=== PATIENT | female | born 1935 | race Hispanic/Latino ===

== ENCOUNTER 2019-11-02 16:29 | Emergency (ER) | payer MEDICARE ==
[2019-11-02] MEDS ORDERED: LIDOCAINE (4%) 40 MG/ML TOPICAL SOLN 50 ML BOTTLE TP ONE (17:31)
[2019-11-02] MEDS ORDERED: METOCLOPRAMIDE 10 MG/2 ML INJ IV ONE (17:31)
--- NOTE | 2019-11-02 17:33 | Emergency Department Report ---
<CRYSTAL PELAYO - Last Filed: 11/02/19 23:52> ED General Adult HPI - General Chief complaint: Headache Stated complaint: DIZZINESS Time Seen by Provider: 11/02/19 17:13 Source: patient, EMS (EMS documentation not available at the time of chart dictation), RN notes reviewed Mode of arrival: Stretcher Limitations: No Limitations - History of Present Illness Initial comments: The patient is an 84-year-old female. Patient is not known to this provider previously. She currently does not have a primary care doctor. The patient presents to the ER with a complaint of nontraumatic frontal headache. It started earlier on today at about 11:00 AM. She describes the headache as a "spell." Associated with the headache is nontraumatic bilateral paracervical pain that moves to be a simple region. She described transient binocular blurry vision. Apparently, the patient is blind. The patient denies midline neck pain, chest pain, abdominal pain, shortness of breath. She states that she has chronic paraspinal trapezius pain for months and years. She reports that she does a lot of heavy lifting at home. The patient denies extremity weakness and her numbness. She denies bladder or bowel retention and or incontinence. She denies urinary symptoms. She presented to the ER "to get a picture taken so I can know what was going on." -: Gradual Location: head, neck Severity scale (0 -10): 6 Quality: aching Consistency: intermittent Improves with: rest Worsens with: movement - Related Data Previous Rx's Medication Instructions Recorded Last Taken Type Ibuprofen/Famotidine [Duexis 1 each PO TID PRN #45 tablet 06/25/16 Unknown Rx 800-26.6 mg Tablet] Allergies Allergy/AdvReac Type Severity Reaction Status Date / Time No Known Allergies Allergy Unverified 10/05/14 13:15 ED Review of Systems Constitutional: denies: fever Eyes: vision change ENT: denies: congestion Respiratory: denies: wheezing Cardiovascular: denies: syncope Gastrointestinal: denies: vomiting Genitourinary: denies: dysuria Musculoskeletal: arthralgia, myalgia Neurological: headache. denies: weakness, numbness, paresthesias, confusion Hematological/Lymphatic: denies: easy bleeding ED Past Medical Hx - Past Medical History Previous Medical History?: Yes Hx Hypertension: Yes Additional medical history: legally blind. thyroid - Surgical History Past Surgical History?: Yes Additional Surgical History: thyroid - Social History Smoking Status: Never Smoker Substance Use Type: None - Medications Home Medications: Home Medications Medication Instructions Recorded Confirmed Last Taken Type Ibuprofen/Famotidine [Duexis 1 each PO TID PRN #45 tablet 06/25/16 Unknown Rx 800-26.6 mg Tablet] ED Physical Exam - General Limitations: No Limitations General appearance: alert, in no apparent distress - Head Head exam: Present: atraumatic, normocephalic - Eye Eye exam: Present: normal appearance, PERRL, EOMI, other (visual acuity intact t o finger counting and color perception at a close distance). Absent: nystagmus - ENT ENT exam: Present: normal exam, normal orophraynx, mucous membranes moist, normal external ear exam - Neck Neck exam: Present: normal inspection, full ROM. Absent: tenderness, meningismus - Respiratory Respiratory exam: Present: normal lung sounds bilaterally. Absent: respiratory distress - Cardiovascular Cardiovascular Exam: Present: regular rate, normal rhythm, normal heart sounds. Absent: bradycardia, tachycardia, irregular rhythm, systolic murmur, diastolic murmur, rubs, gallop - GI/Abdominal GI/Abdominal exam: Present: soft. Absent: distended, tenderness, guarding, rebound, rigid, pulsatile mass - Extremities Exam Extremities exam: Present: normal inspection, full ROM, other (2+ pulses noted in the bilateral upper and lower extremities. There is no long bony tenderness. The muscular compartments are soft. The pelvis is stable.). Absent: pedal edema, calf tenderness - Back Exam Back exam: Present: normal inspection, full ROM. Absent: tenderness, CVA tenderness (R), CVA tenderness (L), paraspinal tenderness, vertebral tenderness - Neurological Exam Neurological exam: Present: alert, oriented X3, other (there is no facial droop. The tongue is midline. The extraocular movements are intact bilaterally. ). Absent: motor sensory deficit - Psychiatric Psychiatric exam: Present: anxious - Skin Skin exam: Present: warm, dry, intact, normal color. Absent: rash ED Course - Reevaluation(s) Reevaluation #1: 11/02/19 18:54 Differential diagnosis, including not limited to: Frontal sinusitis, TIA, stroke, carotid dissection, posterior circulation dissection, thrombosis, migraine headache, tension headache, cluster headache, temporal arteritis Assessment and plan: 84-year-old female describing frontal headache, and acute on chronic bilateral paracervical neck pain. She also describes nonspecific binocular visual disturbance. The patient is alert and oriented, clinically sober, and free from distracting injury. The patient exhibits decision-making capacity at this time. We recommended screening laboratory studies, CT scan of the brain, and CT angiogram of the head and neck. We also recommended admission to the hospital after initial diagnostics, assuming they were unremarkable and nondiagnostic. The patient is refusing most of this. She is amenable to EKG, and noncontrast CT scan of the brain. Risks of an incomplete workup, including , disability, paralysis, loss of quality of life were discussed with the patient, who articulated understanding in her own words. The patient is free from distracting injury at this time, and exhibits decision-making capacity. This entire conversation was witnessed by nurse Silvia Aguirre Reevaluation #2: 11/02/19 22:34 Extensive discussion had with the patient, and son, and [id number]. Patient gave verbal consent to discuss her medical information. Discussed CAT scan findings, and laboratory studies. The patient's primary care doctor is Dr. Dayan Rodgers Patient is currently taking Synthroid. After much intense discussion between the patient and aforementioned family members, patient is now amenable to CT angiogram. Nursing team to attempt IV. Please note that the patient initial refusal for CT scan with contrast, initial refusal for labs, and initial refusal for IV and angiogram have led to a rather prolonged stay for her in the emergency room. The patient continues to exhibit decision making capacity at this time. 11/02/19 22:35 Reevaluation #3: 11/02/19 23:[address] Dayan Paez to follow up cta head neck reiterated plan to family they are trying to convince patient of plan she continues to exhibit decision making capacity ED Medical Decision Making - Lab Data Result diagrams: 11/02/19 19:13 11/02/19 19:13 Vital Signs 11/02/19 11/02/19 16:50 18:32 Temperature 97.8 F Pulse Rate 82 Respiratory 18 20 Rate Blood Pressure 147/55 [Right] O2 Sat by Pulse 98 Oximetry Vital Signs 11/02/19 11/02/19 16:50 18:32 Temperature 97.8 F Pulse Rate 82 Respiratory 18 20 Rate Blood Pressure 147/55 [Right] O2 Sat by Pulse 98 Oximetry Lab Results 11/02/19 11/02/19 11/02/19 Range/Units 19:13 19:13 19:13 WBC 8.0 (4.5-11.0) K/mm3 RBC 4.95 (3.65-5.03) M/mm3 Hgb 13.8 (10.1-14.3) gm/dl Hct 40.9 (30.3-42.9) % MCV 83 (79-97) fl MCH 28 (28-32) pg MCHC 34 (30-34) % RDW 14.8 (13.2-15.2) % Plt Count 239 (140-440) K/mm3 Lymph % (Auto) 21.2 (13.4-35.0) % [place] % (Auto) 7.6 H (0.0-7.3) % Eos % (Auto) 4.5 H (0.0-4.3) % Baso % (Auto) 0.7 (0.0-1.8) % Lymph # 1.7 (1.2-5.4) K/mm3 [place] # 0.6 (0.0-0.8) K/mm3 Eos # 0.4 (0.0-0.4) K/mm3 Baso # 0.1 (0.0-0.1) K/mm3 Seg Neutrophils % 66.0 (40.0-70.0) % Seg Neutrophils # 5.3 (1.8-7.7) K/mm3 ESR 23 (0-20) mm/Hr PT 12.6 (12.2-14.9) Sec. INR 0.95 (0.87-1.13) APTT 32.0 (24.2-36.6) Sec. Thrombin Time 16.2 (15.1-19.6) Sec. Sodium 137 (137-145) mmol/L Potassium 4.4 (3.6-5.0) mmol/L Chloride 98.6 (98-107) mmol/L Carbon Dioxide 21 L (22-30) mmol/L Anion Gap 22 mmol/L BUN 10 (7-17) mg/dL Creatinine 0.5 L (0.7-1.2) mg/dL Estimated GFR > 60 ml/min BUN/Creatinine Ratio 20 % Glucose 117 H (65-100) mg/dL Calcium 10.2 (8.4-10.2) mg/dL Magnesium (1.7-2.3) mg/dL Total Bilirubin 0.30 (0.1-1.2) mg/dL AST 25 (5-40) units/L ALT 25 (7-56) units/L Alkaline Phosphatase 85 (35-129) units/L Total Creatine Kinase (30-135) units/L Troponin T < 0.010 (0.00-0.029) ng/mL Total Protein 7.4 (6.3-8.2) g/dL Albumin 4.6 (3.9-5) g/dL Albumin/Globulin Ratio 1.6 % TSH (0.270-4.200) mlU/mL Free T4 (0.76-1.46) ng/dL 11/02/19 11/02/19 11/02/19 Range/Units 19:13 19:13 19:13 WBC (4.5-11.0) K/mm3 RBC (3.65-5.03) M/mm3 Hgb (10.1-14.3) gm/dl Hct (30.3-42.9) % MCV (79-97) fl MCH (28-32) pg MCHC (30-34) % RDW (13.2-15.2) % Plt Count (140-440) K/mm3 Lymph % (Auto) (13.4-35.0) % [place] % (Auto) (0.0-7.3) % Eos % (Auto) (0.0-4.3) % Baso % (Auto) (0.0-1.8) % Lymph # (1.2-5.4) K/mm3 [place] # (0.0-0.8) K/mm3 Eos # (0.0-0.4) K/mm3 Baso # (0.0-0.1) K/mm3 Seg Neutrophils % (40.0-70.0) % Seg Neutrophils # (1.8-7.7) K/mm3 ESR (0-20) mm/Hr PT (12.2-14.9) Sec. INR (0.87-1.13) APTT (24.2-36.6) Sec. Thrombin Time (15.1-19.6) Sec. Sodium (137-145) mmol/L Potassium (3.6-5.0) mmol/L Chloride (98-107) mmol/L Carbon Dioxide (22-30) mmol/L Anion Gap mmol/L BUN (7-17) mg/dL Creatinine (0.7-1.2) mg/dL Estimated GFR ml/min BUN/Creatinine Ratio % Glucose (65-100) mg/dL Calcium (8.4-10.2) mg/dL Magnesium 2.30 (1.7-2.3) mg/dL Total Bilirubin (0.1-1.2) mg/dL AST (5-40) units/L ALT (7-56) units/L Alkaline Phosphatase (35-129) units/L Total Creatine Kinase 91 (30-135) units/L Troponin T (0.00-0.029) ng/mL Total Protein (6.3-8.2) g/dL Albumin (3.9-5) g/dL Albumin/Globulin Ratio % TSH 0.009 L (0.270-4.200) mlU/mL Free T4 2.67 H (0.76-1.46) ng/dL - EKG Data -: EKG Interpreted by Ak EKG shows normal: sinus rhythm Rate: normal - EKG Data When compared to previous EKG there are: previous EKG unavailable 11/02/19 18:53 There is no prior EKG available for comparison. The EKG shows a sinus rhythm, 76 bpm, left axis deviation, poor R wave progression, QTC is 439 ms, the EKG is abnormal, the EKG is not consistent with ST elevation myocardial infarction. - Radiology Data Radiology results: pending, report reviewed, image reviewed Noncontrast CT scan of the brain is negative for acute disease ED Disposition Clinical Impression: Dizziness Disposition: DC-01 TO HOME OR SELFCARE Condition: Stable Instructions: Lightheadedness (ED), Dizziness (ED) Referrals: PRIMARY CARE, [Referring] - 3-5 Days <CRISTY ELLISON - Last Filed: 11/03/19 04:19> ED Review of Systems ROS: Stated complaint: DIZZINESS Other details as noted in HPI ED Course Vital Signs 11/02/19 11/02/19 11/02/19 16:50 18:32 19:20 Temperature 97.8 F Pulse Rate 82 102 H Respiratory 18 20 14 Rate Blood Pressure 147/55 145/67 [Right] O2 Sat by Pulse 98 96 Oximetry 11/02/19 22:00 Temperature Pulse Rate 90 Respiratory 14 Rate Blood Pressure 147/67 [Right] O2 Sat by Pulse 96 Oximetry ED Medical Decision Making - Lab Data Result diagrams: 11/02/19 19:13 11/02/19 19:13 - Medical Decision Making CTA: no significant stenosis mild calcification of ICA bilaterally, no stenosis in head or neck Critical care attestation.: If time is entered above; I have spent that time in minutes in the direct care o f this critically ill patient, excluding procedure time. ED Disposition Is pt being admited?: No Does the pt Need Aspirin: No
[2019-11-02] MEDS ORDERED: ACETAMINOPHEN 500 MG TAB PO ONE (17:45)
[2019-11-02 19:32] LABS: Basophils # (Auto) 0.1 K/mm3 (0.0-0.1); Basophils % (Auto) 0.7 % (0.0-1.8); Eosinophils # (Auto) 0.4 K/mm3 (0.0-0.4); Eosinophils % (Auto) 4.5 % (0.0-4.3); Hematocrit 40.9 % (30.3-42.9); Hemoglobin 13.8 gm/dl (10.1-14.3); Lymphocytes # (Auto) 1.7 K/mm3 (1.2-5.4); Lymphocytes % (Auto) 21.2 % (13.4-35.0); Mean Corpuscular HGB Conc 34 % (30-34); Mean Corpuscular Volume 83 fl (79-97); Monocytes # (Auto) 0.6 K/mm3 (0.0-0.8); Monocytes % (Auto) 7.6 % (0.0-7.3); Platelet Count 239 K/mm3 (140-440); Red Blood Count 4.95 M/mm3 (3.65-5.03); Red Cell Distribution Width 14.8 % (13.2-15.2)
[2019-11-02 19:41] LABS: INR 0.95 (0.87-1.13)
[2019-11-02 19:42] LABS: Thrombin Time 16.2 Sec. (15.1-19.6)
[2019-11-02 19:46] LABS: Erythrocyte Sedimentation Rate 23 mm/Hr (0-20)
[2019-11-02 20:02] LABS: Alanine Aminotransferase 25 units/L (7-56); Albumin 4.6 g/dL (3.9-5); BUN/Creatinine Ratio 20; Blood Urea Nitrogen 10 mg/dL (7-17); Calcium 10.2 mg/dL (8.4-10.2); Hemolysis Index 39
--- NOTE | 2019-11-02 20:38 | Cat Scan Report ---
CT head/brain wo con INDICATION / CLINICAL INFORMATION: 84 years Female; Stroke symptoms. TECHNIQUE: Routine CT head without contrast. All CT scans at this location are performed using CT dos e reduction for ALARA by means of automated exposure control. COMPARISON: None. FINDINGS: BRAIN / INTRACRANIAL CONTENTS: There is notable hyperostosis frontalis interna with beam hardening ar tifact. However, the brain appears to demonstrate appropriate attenuation for age. There is no clear CT evidence of acute intracranial hemorrhage or significant mass effect. The ventricular system is ap propriate in size and configuration. ORBITS: No significant abnormality of visualized orbits. SINUSES / MASTOIDS: No significant abnormality the visualized paranasal sinuses or mastoid air cells. CRANIOCERVICAL JUNCTION: No significant abnormality. ADDITIONAL FINDINGS: None. IMPRESSION: 1. There is no clear CT evidence of acute intracranial process. Signer Name: Stan Faustin MD Signed: 11/02/2019 8:34 PM Workstation Name: [id number]
[2019-11-02] MEDS ORDERED: SODIUM CHLORIDE 0.9% 500 ML 500 ML IV ONE (22:15)
[2019-11-03 02:37] VITALS: BP 147/67
[2019-11-03] MEDS ORDERED: CEFEPIME/NS 1 GM/100 ML 0 GM/0 ML BAG IV ONE (03:02)
--- NOTE | 2019-11-03 03:40 | Cat Scan Report ---
CTA neck with and without contrast CLINICAL HISTORY: Headache, blurred vision. Technique: Multiple contiguous postcontrast axial CT images of the neck were obtained at 0.63 mm inte rvals. 3 plane MIP reconstructions were produced. Precontrast localizing images were also performed. All CT scans at this location are performed using the CT dose reduction for ALARA by means of automat ed exposure control. FINDINGS: No previous CTA exams available for comparison. There is atherosclerotic calcification invo lving the proximal left ICA. However, there is no significant stenosis by NASCET criteria. There are small foci of calcification involving the right carotid bifurcation without significant stenosis at. The vertebral arteries appear to demonstrate appropriate caliber without significant focal narrowing. The arch of vessels are not fully included on this exam. There is no significant stenosis involving proximal left subclavian artery. There is a small focus of calcification along the visualized anterio r left common carotid artery near the origin without significant stenosis. There are notable atrophic changes of the right sternocleidomastoid muscle. IMPRESSION: There is milder calcification involving the proximal internal carotid arteries bilaterally without si gnificant stenosis of by NASCET criteria. Signer Name: Stan Faustin MD Signed: 11/03/2019 3:35 AM Workstation Name: [id number]
--- NOTE | 2019-11-03 03:46 | Cat Scan Report ---
CTA head with and without IV contrast. CLINICAL HISTORY: Headache, blurred vision. Technique: Multiple contiguous postcontrast CT images of the head were obtained at 0.63 mm intervals. 3 plane MIP reconstructions were obtained. Precontrast localizing images were also performed. CT scan s at this location are performed using the CT dose reduction for ALARA by means of automated exposure control. FINDINGS: There is no significant stenosis involving the distal internal carotid arteries by NASCET morris smith. 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 However, there is no e vidence of significant focal stenosis involving the cerebral arteries. The vertebral basilar system i s unremarkable. There is no clear CTA evidence of intracranial aneurysm. The dural venous sinuses opa cify with contrast. Review of the stat CT head performed at 8:08 PM Central standard time revealed no evidence of acute intracranial process. IMPRESSION: There is no CTA evidence of significant focal stenosis involving intracranial vessels. Signer Name: Stan Faustin MD Signed: 11/03/2019 3:42 AM Workstation Name: [id number]
== END 2019-11-03 04:30 | disposition home or self-care (01) ==
LOC: ED 16:29
DX: R42 Dizziness and giddiness (principal)
CPT/HCPCS: 36415; 70450; 70496; 70498; 80053; 82550; 83735; 84439; 84443; 84484; 85025; 85610; 85652; 85670; 85730; 93005; 93010; 96360; 99285; J7040; Q9967; J0692

== ENCOUNTER 2019-12-30 06:25 | Emergency (ER) | payer MEDICARE ==
[2019-12-30] MEDS ORDERED: BUTALB/ACETAMINOPHEN/CAFFEINE TAB PO ONE (07:39)
--- NOTE | 2019-12-30 07:47 | Emergency Department Report ---
ED Headache HPI - General Chief Complaint: Headache Stated Complaint: HEADACHE Time Seen by Provider: 12/30/19 07:39 Source: patient - History of Present Illness Initial Comments: 84-year-old female with history of hypertension, sinus disease, remote history of migraine headaches, presents to ED with complaint of frontal headache times one hour. Patient states pain is located across the forehead, behind both eyes, and in bilateral cheeks "above her teeth." Patient reports she has had some nasal congestion with associated postnasal drip. Patient reports pain is not severe but could feel it "getting bad." She states she didn't have any aspirin to take so she called EMS. Daughter is at bedside, reports patient has extensive history of sinus disease. Also states when patient was much younger she used to have migraine headaches. Patient is also scheduled to have a root canal on her upper tooth. Patient denies any fever, nausea or vomiting, recent trauma. Timing/Duration: 1-3 hours Quality: moderate Head Injury Location: frontal Recent Head Trauma: occasional headaches Modifying Factors: improves with: cold therapy, immobilization, movement Associated Symptoms: facial pain, nasal congestion, nasal drainage. denies: fever/chills, loss of consciousness, nausea/vomiting, stiff neck, vision changes Allergies/Adverse Reactions: Allergies No Known Allergies Allergy (Unverified 10/05/14 13:15) Home Medications: Ambulatory Orders Ibuprofen/Famotidine [Duexis 800-26.6 mg Tablet] 1 each PO TID PRN #45 tablet 06/25/16 Butalb/Acetamin/Caff 50-325-40 [Fioricet] 1 tab PO Q6HR PRN #10 tab 12/30/19 ED Review of Systems ROS: Stated complaint: HEADACHE Other details as noted in HPI Comment: All other systems reviewed and negative Constitutional: denies: chills, fever Eyes: denies: vision change Gastrointestinal: denies: nausea, vomiting Neurological: headache. denies: weakness, numbness, paresthesias ED Past Medical Hx - Past Medical History Previous Medical History?: Yes Hx Hypertension: Yes Additional medical history: legally blind. thyroid - Surgical History Past Surgical History?: Yes Additional Surgical History: thyroid - Social History Smoking Status: Never Smoker Substance Use Type: None - Medications Home Medications: Home Medications Medication Instructions Recorded Confirmed Last Taken Type Ibuprofen/Famotidine [Duexis 1 each PO TID PRN #45 tablet 06/25/16 Unknown Rx 800-26.6 mg Tablet] Butalb/Acetamin/Caff 50-325-40 1 tab PO Q6HR PRN #10 tab 12/30/19 Unknown Rx [Fioricet] ED Physical Exam - General Limitations: Physical Limitation General appearance: alert, in no apparent distress - Head Head exam: Present: atraumatic, normocephalic, normal inspection - Eye Eye exam: Present: normal appearance, PERRL, EOMI, other (pt is legally blind, able to see very little) - ENT ENT exam: Present: mucous membranes moist - Neck Neck exam: Present: normal inspection, full ROM - Respiratory Respiratory exam: Present: normal lung sounds bilaterally. Absent: respiratory distress - Cardiovascular Cardiovascular Exam: Present: normal rhythm, bradycardia - GI/Abdominal GI/Abdominal exam: Present: soft. Absent: distended, tenderness - Extremities Exam Extremities exam: Present: normal inspection - Neurological Exam Neurological exam: Present: alert, oriented X3, CN II-XII intact. Absent: motor sensory deficit - Psychiatric Psychiatric exam: Present: normal affect, normal mood - Skin Skin exam: Present: warm, dry, intact, normal color ED Course Vital Signs 12/30/19 12/30/19 12/30/19 06:41 09:03 09:04 Temperature 98.0 F 97.4 F L Pulse Rate 50 L 71 Respiratory 12 16 16 Rate Blood Pressure 136/63 Blood Pressure 122/71 [Right] O2 Sat by Pulse 99 96 96 Oximetry - Reevaluation(s) Reevaluation #1: 12/30/19 08:53 Pt has been given fioricet. States she can feel the headche "going away." Feels much better at this time. ED Medical Decision Making - Radiology Data Radiology results: report reviewed, image reviewed - Medical Decision Making Pt seen for similar complaint approx 2 mos ago 11/02/19. Had unremarkable CT Head, CTA Head and Neck at that time. Pt currently reports improvement of CURRAN following fioricet. No neuro deficits on exam. Vitals are stable. CT Head negative today. No evidence of sinus disease on CT. Pt is afebrile, will hold antibiotics at this time. Patient and daughter feel comfortable w/ discharge home. Prescription for fioricet given. Outpt f/u advised. Return precautions given. - Differential Diagnosis tension CURRAN, sinusitis, intracranial abnormality Critical care attestation.: If time is entered above; I have spent that time in minutes in the direct care of this critically ill patient, excluding procedure time. ED Disposition Clinical Impression: Acute headache Disposition: DC- TO HOME OR SELFCARE Is pt being admited?: No Condition: Stable Instructions: Acute Headache (ED) Prescriptions: Butalb/Acetamin/Caff 50-325-40 [Fioricet] 1 tab PO Q6HR PRN #10 tab PRN Reason: Headache Referrals: PRIMARY CARE, [Referring] - 3-5 Days SHIMA LARRY MD [Referring] - 3-5 Days Time of Disposition: 09:13
--- NOTE | 2019-12-30 08:23 | Cat Scan Report ---
CT head without contrast HISTORY: headache. TECHNIQUE: Axial imaging performed from the skull apex through the skull base without the use of con trast. All CT scans at this location are performed using CT dose reduction for ALARA by means of aut omated exposure control. COMPARISON: CT head from 11/02/2019 FINDINGS: Parenchyma: No acute intracranial hemorrhage or parenchymal abnormality. Ventricles: There is mild diffuse brain atrophy with commensurate ventricular enlargement which is l ikely age appropriate. Soft tissues: Soft tissues including the orbits appear normal. Bones: No acute osseous abnormality. Sinuses: Sinuses and mastoid air cells are clear. IMPRESSION: No acute abnormality. Signer Name: Massimo Novak MD Signed: 12/30/2019 8:19 AM Workstation Name: [id number]
[2019-12-30 09:05] VITALS: BP 122/71
== END 2019-12-30 09:50 | disposition home or self-care (01) ==
LOC: ED 06:25
DX: G43.909 Migraine, unspecified, not intractable, without status migrainosus (principal); I10 Essential (primary) hypertension; Z79.899 Other long term (current) drug therapy
CPT/HCPCS: 70450